=== PATIENT | female | born 1995 | race Caucasian/White ===

== ENCOUNTER → 2020-04-09 13:19 | Outpatient (REF) | payer OTHER, SELFPAY ==
--- NOTE | 2020-04-09 13:51 | ECG_ITS ---
Test Reason : PRE-OP Blood Pressure : / mmHG Vent. Rate : 073 BPM Atrial Rate : 073 BPM P-R Int : 136 ms QRS Dur : 072 ms QT Int : 384 ms P-R-T Axes : 064 068 031 degrees QTc Int : 423 ms Normal sinus rhythm Normal ECG No previous ECGs available Referred By: Zhen Thomas Electronically Signed By:DERECK NOLEN MD
== END ==
LOC: HO.CARD 13:19
PROVIDERS: Visit Provider Surgery Plastic and Reconstructive Surgery
DX: Z01.818 Encounter for other preprocedural examination (principal); Z01.810 Encounter for preprocedural cardiovascular examination; Z01.811 Encounter for preprocedural respiratory examination
CPT/HCPCS: 93005

== ENCOUNTER → 2021-05-01 13:01 | Outpatient (REF) | payer OTHER, SELFPAY ==
--- NOTE | 2021-05-01 13:08 | ECG_ITS ---
Test Reason : pre op Blood Pressure : / mmHG Vent. Rate : 068 BPM Atrial Rate : 068 BPM P-R Int : 142 ms QRS Dur : 078 ms QT Int : 384 ms P-R-T Axes : 066 053 028 degrees QTc Int : 408 ms Normal sinus rhythm with sinus arrhythmia Normal ECG When compared with ECG of 09-APR-2020 14:11, No significant change was found Referred By: Zhen Warner Electronically Signed By:ERNESTINE PINEDA
== END ==
LOC: HO.CARD 13:01
PROVIDERS: PCP Internal Medicine; Visit Provider Surgery Plastic and Reconstructive Surgery
DX: Z01.818 Encounter for other preprocedural examination (principal)
CPT/HCPCS: 93005

== ENCOUNTER 2022-03-16 18:06 | Emergency (ER) | payer OTHER, SELFPAY ==
--- NOTE | ~2022-03-16 | XR_ITS ---
Examination: XR elbow RT min 3V, XR shoulder RT min 2V Indication: pain Comparison: No pertinent prior studies are currently available for comparison. Technique: 3 views of the right shoulder and 3 views of the right elbow Findings: Right shoulder: Humeral head is well-seated in the glenoid fossa. There is no acute fracture or dislocation. Acromioclavicular joint unremarkable. Visualized right upper chest and ribs unremarkable. Right elbow: No significant joint effusion. Bones are normal anatomic alignment. No acute fracture or dislocation seen. XR/XR elbow RT min 3V Impression: Unremarkable exam.
--- NOTE | ~2022-03-16 | XR_ITS ---
EXAMINATION: XR HIP, RIGHT CLINICAL INFORMATION: Pain COMPARISON: None TECHNIQUE: Frontal view the pelvis with coned frontal and frog-leg lateral views of the right hip. FINDINGS: Bones and soft tissues are normal. No fracture. Alignment is anatomic. Hip joint space is maintained. XR/XR hip RT w PEL1V IMPRESSION: Normal right hip.
--- NOTE | ~2022-03-16 | XR_ITS ---
Examination: XR elbow RT min 3V, XR shoulder RT min 2V Indication: pain Comparison: No pertinent prior studies are currently available for comparison. Technique: 3 views of the right shoulder and 3 views of the right elbow Findings: Right shoulder: Humeral head is well-seated in the glenoid fossa. There is no acute fracture or dislocation. Acromioclavicular joint unremarkable. Visualized right upper chest and ribs unremarkable. Right elbow: No significant joint effusion. Bones are normal anatomic alignment. No acute fracture or dislocation seen. XR/XR shoulder RT min 2V Impression: Unremarkable exam.
[2022-03-16 18:10] VITALS: BP 124/84; PULSE 103; RESP 20; TEMP 36.7; O2SAT 96; BMI 25.6
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
[2022-03-16 19:27] LABS: UPreg QC Valid YES; Urine Pregnancy NEGATIVE (NEGATIVE)
[2022-03-16 20:05] VITALS: BP 113/78; PULSE 98; RESP 22; TEMP 36.9; O2SAT 97
== END 2022-03-16 20:18 | disposition home or self-care (01) ==
PROVIDERS: Physician Assistant Medical; Emergency Provider Emergency Medicine
DX: R51.9 Headache, unspecified (principal); M25.512 Pain in left shoulder; M25.511 Pain in right shoulder; M54.2 Cervicalgia; M25.551 Pain in right hip; Z79.899 Other long term (current) drug therapy
CPT/HCPCS: 73030; 73080; 73502; 81025; 99283